=== PATIENT | male | born 1945 | race Caucasian/White ===

== ENCOUNTER 2018-07-18 02:36 | Emergency (ER) | payer BC ==
[2018-07-18 02:43] VITALS: BP 130/89; PULSE 52; TEMP 97.5; BMI 27.3
--- NOTE | 2018-07-18 02:46 | PDOC ---
History of Present Illness - General Chief Complaint: Urinary Problem Stated Complaint: URINARY RETENTION Time Seen by Provider: 07/18/18 02:40 - History of Present Illness Initial Comments: This 73-year-old man with a history of BPH, s/p transurethral catheter procedure to treat BPH on 07/14 presents with a several hour history of progressive urinary retention. Patient states that he had a urinary catheter in place for the first 48 hours after the procedure. Catheter was removed in the morning, Monday 07/17. Patient initially was able to urinate but for the last 6-8 hours prior to presentation ER, patient was unable to empty his bladder and when he presented to the ER, he had not urinated at all for approximately 4-1/2 hours. No fever/chills/vomiting. Although patient had stopped his Flomax earlier in the weekend, he took usual Flomax dose earlier this evening. He continues to take the antibiotics prescribed after his procedure (patient is unsure name of the antibiotic). PMH HTN No known ALLERGIES Patient is unsure of his medications other than Flomax Past History - Past Medical History Allergies/Adverse Reactions: Allergies Allergy/AdvReac Type Severity Reaction Status Date / Time No Known Allergies Allergy Verified 07/18/18 02:38 Home Medications: Ambulatory Orders Unobtainable 07/18/18 COPD: No Disorders: Yes (ENLARGED PROSTATE) HTN: Yes - Suicide/Smoking/Psychosocial Hx Smoking History: Never smoked Have you smoked in the past 12 months: No Information on smoking cessation initiated: No Hx Alcohol Use: No Drug/Substance Use Hx: No Review of Systems - Review of Systems Able to Perform ROS?: Yes Comments:: 12 point review of systems is negative except for what is noted in the history of present illness *Physical Exam - Vital Signs Last Vital Signs Temp Pulse Resp BP Pulse Ox 97.5 F L 52 L 24 H 130/89 100 07/18/18 02:39 07/18/18 02:39 07/18/18 02:39 07/18/18 02:39 07/18/18 02:39 - Physical Exam Comments: GENERAL: Adult male, in marked distress secondary to urinary retention HEAD: Normal with no signs of trauma. EYES: PERRLA, EOMI, sclera anicteric, conjunctiva clear. ABDOMEN:.normal bowel sounds ;moderate lower abdominal distention with moderate suprapubic tenderness; no peritoneal signs/rebound/guarding EXTREMITIES: Normal range of motion, no edema. No clubbing or cyanosis. No erythema, or tenderness. NEUROLOGICAL: Cranial nerves II through XII grossly intact. Normal speech. No focal neurological deficits. MUSCULOSKELETAL: Back non-tender to palpation, no CVA tenderness SKIN: Warm, Dry, normal turgor, no rashes or lesions noted. Progress Note - Progress Note Progress Note: Using sterile technique, 16 [place] urinary catheter placed without difficulty into the bladder. Large amount of clear yellow, then light pink urine flowed easily. No clots or mucus evident in the urine. Patient had immediate relief of his discomfort. 450 mL urine measured at initial bladder emptying. Urinalysis and urine culture and sensitivity sent Total urine volume Catheter kept in place and leg bag attached. Patient will be discharged with instructions to continue medications as prescribed. He should call 's office in the morning and arrange follow-up appointment. Meanwhile, the patient has recurrent pain/distention or develops fever/nausea/ vomiting, he should return to the ER *DC/Admit/Observation/Transfer Diagnosis at time of Disposition: Urinary retention - Discharge Dispostion Disposition: HOME Condition at time of disposition: Stable - Referrals Referrals: Adonis Ta MD [Staff Physician] - Call tomorrow - Patient Instructions Printed Discharge Instructions: DI for Urinary Retention in Men Additional Instructions: Keep urinary catheter in place Continue all medications including antibiotics as previously prescribed Call office in the morning to arrange follow-up within the next 2 days Return to ER if you have recurrent pain/swelling or experience fever/vomiting - Post Discharge Activity
[2018-07-18 05:50] LABS: EPI CELLS 0.2 /HPF (0-5); PH,URINE 7.5 (5.0-8.0); URINE APPEARANCE CLEAR; URINE BACTERIA 0.7 /hpf (NEGATIVE); URINE BILIRUBIN NEGATIVE (NEGATIVE); URINE CASTS 2 /hpf (0-8); URINE COLOR RED; URINE GLUCOSE (UA) NEGATIVE (NEGATIVE); URINE KETONE NEGATIVE (NEGATIVE); URINE LEUK ESTERASE TRACE (NEGATIVE); URINE NITRITE NEGATIVE (NEGATIVE); URINE PROTEIN NEGATIVE (NEGATIVE); URINE RBC 2131 /hpf (0-4); URINE UROBILINOGEN 0.2 mg/dL (0.2-1.0); URINE WBC 3 /hpf (0-5)
== END 2018-07-18 03:10 | disposition home or self-care (01) ==
LOC: FER 02:36
PROC: 0T9B70Z Drainage of Bladder with Drainage Device, Via Natural or Artificial Opening (ICD-10-PCS; principal; 2018-07-18)
DX: R33.9 Retention of urine, unspecified (principal); I10 Essential (primary) hypertension; N40.0 Benign prostatic hyperplasia without lower urinary tract symptoms
CPT/HCPCS: 51702; 81003; 87086; 99282-25

== ENCOUNTER 2020-10-13 05:47 | Emergency (ER) | payer BC, OTHER ==
[2020-10-13 05:55] VITALS: BP 113/83; PULSE 73; TEMP 97.8; BMI 26.2
[2020-10-13] MEDS ORDERED: CIPROFLOXACIN 500 MG TABLET (RESTRICTED TO ID) PO ONE (06:00)
[2020-10-13] MEDS ORDERED: CIPROFLOXACIN 250 MG TABLET (RESTRICTED TO ID) PO ONE (06:05)
== END 2020-10-13 06:18 | disposition home or self-care (01) ==
LOC: FER 05:47
DX: R33.9 Retention of urine, unspecified (principal)
CPT/HCPCS: 99283-25